=== PATIENT | male | born 1970 | race African-American/Black ===

== ENCOUNTER 2017-08-13 04:16 | Observation (INO) | payer OTHER ==
[~2017-08-13] VITALS: Ht 180.3 cm; Wt 86.6 kg
[~2017-08-13 04:16] MED LIST: AMLO2.5T PO; ATEN25TA PO
[2017-08-13 04:41] VITALS: BP 127/84; PULSE 64; RESP 18; TEMP 98.1; O2SAT 96
[2017-08-13] MEDS ORDERED: MORPHINE SULFATE 4 MG/ML INJ ONE (05:17)
[2017-08-13] MEDS: MORPHINE SULFATE 2 MG/ML INJ IV PRN ×2 (05:18→09:40)
[2017-08-13 05:20] VITALS: BP 113/75; PULSE 69; RESP 18; O2SAT 100
[2017-08-13 05:22] LABS: TROPONIN I LESS THAN 0.02 NG/ML (0.02-0.05)
[2017-08-13] MEDS ORDERED: ACETAMINOPHEN 500 MG CPLT PO PRN (06:00)
[2017-08-13] MEDS ORDERED: ACETAMINOPHEN/HYDROcodone 325 MG/7.5 MG TAB PO PRN (06:00)
[2017-08-13] MEDS ORDERED: SODIUM CHLORIDE 0.9% FLUSH 10 ML FLUSH IV FLUSH PRN ×2 (06:00)
[2017-08-13] MEDS ORDERED: ONDANSETRON HCL 4 MG/2 ML VIAL IV PUSH PRN (06:00)
[2017-08-13 07:01] VITALS: BP 112/89; PULSE 78; RESP 18; O2SAT 97
[2017-08-13] MEDS ORDERED: NITROGLYCERIN 0.4 MG SL 25 TABS/BTL SL PRN (09:00)
[2017-08-13] MEDS ORDERED: ASPIRIN 325 MG TAB PO SCH (09:00)
[2017-08-13 09:38] VITALS: BP 130/78; PULSE 77; RESP 16; O2SAT 100
[2017-08-13 11:42] VITALS: BP 121/78; PULSE 76; RESP 21; TEMP 98.5; O2SAT 98
--- NOTE | 2017-08-13 13:42 | HHI.HP ---
HPI Primary Care Physician Dr. Demarco Chief Complaint Chest pain History of Present Illness 47-year-old male with history of hypertension presents to emergency room for further evaluation of chest pressure. Onset Sunday. Location substernal. Characterized as pressure. Severity mild. No radiation of pain. Duration constant waxing and waning in intensity since Sunday, reporting discomfort comes in "waves" lasting 3-4 minutes. Reports experiencing pressure more often then not since Sunday. No associated symptoms of nausea, vomiting, shortness breath, or dyspnea. No known precipitating or relieving factors. Denies similar pain in the past. Taking deep breaths helps. 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 Yesterday discomfort became more severe, therefore encouraged him to come to ER for further evaluation. Review of Systems General: No fatigue,weakness, fever, chills, recent illness, or change in appetite. Has been discharged to help. HEENT: No ANDRADE, no vision changes, no nasal congestion or drainage, no dysphasia CV: As stated above. No palpitations, intermittent leg pain, or dizziness. RESP: No SOB, cough, wheeze, or recent URI. GI: No nausea, vomiting, bowel changes, diarrhea, constipation, pain, distention , melena, or blood in the stool. : No dysuria, urgency, frequency EXT: No lower leg edema, no paraesthesias MS: No discomfort, change in ROM, injury or trauma. NEURO: No difficulty with balance, LOC, motor/sensory deficits PSYCH: No anxiety, depression SKIN: No rashes, no concerning lesions Past Family Social History Allergies: Coded Allergies: No Known Allergies (Unverified , 08/13/17) Past Medical History Hypertension, sickle cell trait Past Surgical History None Reported Medications Reported Meds & Active Scripts Active Reported Atenolol 25 Mg Tab Unknown Dose PO DAILY Amlodipine (Amlodipine Besylate) 2.5 Mg Tab Unknown Dose PO DAILY Active Ordered Medications Current Medications Medications (Trade) Dose Ordered Sig/Kem Route Start Time Stop Time Status Last Admin (NS Flush) 2 ml UNSCH PRN IV FLUSH 08/13/17 06:00 (NS Flush) 2 ml UNSCH PRN IV FLUSH 08/13/17 06:00 (Tylenol) 500 mg Q4H PRN PO 08/13/17 06:00 ([place] 7.5-325 Mg) 1 tab Q4H PRN PO 08/13/17 06:00 (Morphine Inj) 2 mg Q4H PRN IV 08/13/17 06:00 08/13/17 09:40 (Zofran Inj) 4 mg Q6H PRN IV PUSH 08/13/17 06:00 (Nitrostat Sl) 0.4 mg Q5M PRN SL 08/13/17 09:00 (Aspirin) 325 mg DAILY PO 08/13/17 09:00 08/13/17 09:40 Family History Noncontributory for early onset cardiovascular disease. Social History Known hypertension. No known coronary artery disease, diabetes, or hypertension. Quit smoking one year ago. 7.5-10 pack year history. Denies any alcohol. . Works local [employer] Endorses an active lifestyle, exercising and walking long distances daily. Past cardiac testing None Physical Exam Vital Signs Vital Signs Date Time Temp Pulse Resp B/P (MAP) Pulse Ox O2 Delivery O2 Flow Rate FiO2 08/13/17 11:42 98.5 76 21 121/78 (92) 98 08/13/17 09:38 77 16 130/78 (95) 100 08/13/17 07:01 78 18 112/89 (97) 97 Room Air 08/13/17 05:20 69 18 113/75 (88) 100 Nasal Cannula 2.00 08/13/17 04:48 64 20 96 Room Air 08/13/17 04:41 98.1 64 18 127/84 (98) 96 Physical Exam GENERAL: Alert WN, WD, NAD, pleasant, Philomena male HEAD: NC, AT EYES: Sclera clear, conjunctiva without injection, pupils equal and round ENT: Mucous membranes pink and moist CV: RRR, without murmur, rub, gallop, no JVD, S1-S2 no S3-S4. Chest wall nontender with palpation. RESP: Clear lungs throughout bilateral, no crackles, wheeze, rhonchi, symmetrical chest rise, nonlabored, able to speak in full sentences ABD: Soft, NT, ND, no masses, positive bowel tones EXT: Pulses +24, no dependent edema MS: Normal tone 4 extremities, nontender, no obvious deformities, full range of motion NEURO: CN II through CN XII grossly intact, motor strength 5/5 PSYCH: A+O 3, pleasant affect, appropriate speech, mood, insight and judgment SKIN: Normal turgor, normal texture, no lesions, no rashes, brisk cap refill, even hair distribution Laboratory Laboratory Tests Test 08/13/17 03:50 Total Creatine Kinase 149 Creatine Kinase MB 0.8 Troponin I LESS THAN 0.02 Imaging Chest x-ray no acute cardiopulmonary disease process Course Initial blood work completed [facility]. CBC, CMP, and 2 troponins unremarkable. Caprini VTE Risk Assessment Caprini VTE Risk Assessment: No/Low Risk (score <= 1) Caprini Risk Assessment Model Point Value = 1 Point Value = 2 Point Value = 3 Point Value = 5 Age 41-60 Minor surgery BMI > 25 kg/m2 Swollen legs Varicose veins or History of unexplained or recurrent spontaneous Oral contraceptives or hormone replacement Sepsis (< 1 month) Serious lung disease, including pneumonia (< 1 month) Abnormal pulmonary function Acute myocardial infarction Congestive heart failure (< 1 month) History of inflammatory bowel disease Medical patient at bed rest Age 61-74 Arthroscopic surgery Major open surgery (> 45 min) Laparoscopic surgery (> 45 min) Malignancy Confined to bed (> 72 hours) Immobilizing plaster cast Central venous access Age >= 75 History of VTE Family history of VTE Factor V Leiden Prothrombin [id number] Lupus anticoagulant Anticardiolipin antibodies Elevated serum homocysteine Heparin-induced thrombocytopenia Other congenital or acquired thrombophilia Stroke (< 1 month) Elective arthroplasty Hip, pelvis, or leg fracture Acute spinal cord injury (< 1 month) Prophylaxis Regimen Total Risk Factor Score Risk Level Prophylaxis Regimen 0-1 Low Early ambulation 2 Moderate Order ONE of the following: *Sequential Compression Device (SCD) *Heparin 5000 units SQ BID 3-4 Higher Order ONE of the following medications: *Heparin 5000 units SQ TID *Enoxaparin/Lovenox 40 mg SQ daily (WT < 150 kg, CrCl > 30 mL/min) *Enoxaparin/Lovenox 30 mg SQ daily (WT < 150 kg, CrCl > 10-29 mL/min) *Enoxaparin/Lovenox 30 mg SQ BID (WT < 150 kg, CrCl > 30 mL/min) AND/OR *Sequential Compression Device (SCD) 5 or more Highest Order ONE of the following medications: *Heparin 5000 units SQ TID (Preferred with Epidurals) *Enoxaparin/Lovenox 40 mg SQ daily (WT < 150 kg, CrCl > 30 mL/min) *Enoxaparin/Lovenox 30 mg SQ daily (WT < 150 kg, CrCl > 10-29 mL/min) *Enoxaparin/Lovenox 30 mg SQ BID (WT < 150 kg, CrCl > 30 mL/min) AND *Sequential Compression Device (SCD) Assessment and Plan Assessment and Plan #1 Atypical chest pain-admitted chest pain center. Ruled out with EKGs and cardiac enzymes. Seen and evaluated by Dr. Bimal Orozco. Proceed with exercise stress test. If cardiac testing unremarkable, plan to discharge home notify primary care provider of arrival to emergency room. Patient agreeable to plan of care. #2 Hypertension-continue home medications, encouraged increasing daily activity , and following a low sodium diet. Discussed importance of tight blood pressure continue and follow up with PCP. Verbalized understanding. Martina Bauer Aug 13, 2017 13:42
--- NOTE | 2017-08-13 13:43 | HHI.DCPOC ---
Discharge Care Plan Diagnosis: (1) Atypical chest pain Goals to Promote Your Health * To prevent worsening of your condition and complications * To maintain your health at the optimal level Directions to Meet Your Goals Take your medications as prescribed Follow your dietary instruction Follow activity as directed Keep your appointments as scheduled Take your immunizations and boosters as scheduled If your symptoms worsen call your PCP, if no PCP go to Urgent Care Center or Emergency Room Smoking is Dangerous to Your Health. Avoid second hand smoke Call the 24-hour hour crisis hotline for domestic abuse at Martina Bauer Aug 13, 2017 13:43
--- NOTE | 2017-08-13 14:58 | EKG ---
Date Performed: 08/13/2017 Time Performed: 06:51:06 PTAGE: 47 years EKG: Sinus rhythm VOLTAGE CRITERIA FOR LVH ABNORMAL ECG NO PREVIOUS TRACING DOCTOR: Bimal Orozco Interpretating Date/Time 08/13/2017 14:56:14
--- NOTE | 2017-08-13 14:59 | EKG ---
Date Performed: 08/13/2017 Time Performed: 03:57:36 PTAGE: 47 years EKG: Sinus rhythm EARLY REPOLARIZATION BORDERLINE ECG NO PREVIOUS TRACING DOCTOR: Bimal Orozco Interpretating Date/Time 08/13/2017 14:58:06
--- NOTE | 2017-08-13 15:26 | TR ---
Date Performed: 08/13/2017 Time Performed: 13:04:25 DOCTOR: Bimal Orozco DRUG LIST: CLINICAL HISTORY: REASON FOR TEST: Chest pain REASON FOR ENDING: OBSERVATION: CONCLUSION: Seth protocol completed. Stopped sec to exceeding target heart rate and leg fatigue . Maximum RM=657 Target HR Achieved=95.0% Maximum OD=565/82. No reprod chest discomfort. No ectopy. N o st t segment segments to sugg ischemia. Great exercise tolerance. Normal bp response. Recovery quic k and unremarkable. COMMENTS: Patient exercised using the Seth protocol. No electrocardiographic changes were seen to suggest ischemia. Hemodynamic response to exercise was normal. No significant arrhythmia was prese nt.
== END 2017-08-13 17:17 | disposition home or self-care (01) ==
LOC: NEPB 04:16 → NEDA 04:43 → NEPHCDU 10:45
PROVIDERS: ADMIT Internal Medicine Interventional Cardiology; ATTEND Internal Medicine Interventional Cardiology
DX: R07.89 Other chest pain (principal); I10 Essential (primary) hypertension; D57.3 Sickle-cell trait; R94.31 Abnormal electrocardiogram [ECG] [EKG]; Z87.891 Personal history of nicotine dependence
CPT/HCPCS: 71045; 80053; 82550; 82552; 83735; 83880; 84484; 85025; 85610; 85730; 93005; 93017; 96374; 99285; G0378; J2270